=== PATIENT | female | born 2000 | race Caucasian/White ===

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

== ENCOUNTER 2020-03-13 16:15 | Emergency (ER) | payer OTHER | END 2020-03-13 17:00 | disposition home or self-care (01) | LOC: MADERS 16:15 | DX: S61.101A Unspecified open wound of right thumb with damage to nail, initial encounter (principal); F17.290 Nicotine dependence, other tobacco product, uncomplicated; W18.30XA Fall on same level, unspecified, initial encounter | CPT/HCPCS: 99283 ==

== ENCOUNTER 2021-02-11 08:45 | Emergency (ER) | payer OTHER ==
[2021-02-11] MEDS ORDERED: Acetaminophen 325 MG TAB ONE (09:13)
[2021-02-12 00:04] LABS: SARS-CoV-2 PCR by NAA DETECTED (NotDetected)
== END 2021-02-11 10:24 | disposition home or self-care (01) ==
LOC: MADERS 08:45
DX: O98.511 Other viral diseases complicating pregnancy, first trimester (principal); U07.1 COVID-19; O16.1 Unspecified maternal hypertension, first trimester; O99.511 Diseases of the respiratory system complicating pregnancy, first trimester; J45.909 Unspecified asthma, uncomplicated; O99.331 Smoking (tobacco) complicating pregnancy, first trimester; F17.290 Nicotine dependence, other tobacco product, uncomplicated; Z3A.01 Less than 8 weeks gestation of pregnancy
CPT/HCPCS: 87081; 87430; 87804; 99283; U0003; U0005

== ENCOUNTER 2022-04-11 14:46 | Emergency (ER) | payer OTHER ==
[2022-04-11] MEDS ORDERED: Ketorolac Tromethamine 60 MG/2 ML VIAL ONE (16:23)
[2022-04-11] MEDS ORDERED: Promethazine 25 MG TAB ONE (16:23)
== END 2022-04-11 16:29 | disposition home or self-care (01) ==
LOC: MADERS 14:46
DX: R51.9 Headache, unspecified (principal); J45.909 Unspecified asthma, uncomplicated; F17.290 Nicotine dependence, other tobacco product, uncomplicated; V40.0XXA Car driver injured in collision with pedestrian or animal in nontraffic accident, initial encounter; Z79.899 Other long term (current) drug therapy
CPT/HCPCS: 70450; 72125; 96372; J1885; Q0169

== ENCOUNTER 2023-02-04 11:16 | Emergency (ER) | payer OTHER, SELFPAY | END 2023-02-04 11:36 | disposition home or self-care (01) | LOC: MADERS 11:16 | DX: Z02.79 Encounter for issue of other medical certificate (principal) | CPT/HCPCS: 99281 ==

== ENCOUNTER 2023-12-08 21:18 | Emergency (ER) | payer MEDICAID, SELFPAY ==
[~2023-12-08 21:18] MED LIST changes: -Sodium Chloride 0.9% 1,000 ML BAG ONE
[2023-12-08 23:13] LABS: Anisocytosis SLIGHT = 6-15 cells (100X) (0-5/hpf); Hematocrit 31.8 % (36.0-47.0); Hemoglobin 9.9 g/dL (12.0-16.0); INR-International Normal Ratio 0.9; Lymphocytes 26 % (21-51); MDiff Complete? YES; Mean Corpuscular HGB CONC 31.1 g/dL (32.0-36.0); Mean Corpuscular Volume 77.2 fl (78.0-98.0); Mean Platelet Volume 7.5 fL (7.4-10.4); Monocytes 5 % (0-10); Neutrophil 69 % (42-75); Ovalocytes SLIGHT = 2-5 cells (100X) (0-1/hpf); Platelet Adequacy Comment Appears Adequate; Platelet Count 238 10x3/uL (130-400); Prothrombin Time 12.5 sec (12.0-14.7); RBC Distribution Width 15.7 % (11.5-14.5); Red Blood Cell (RBC) Count 4.12 mill/uL (4.20-5.40); White Blood Cell (WBC) Count 13.6 10x3/uL (4.8-10.8)
[2023-12-08 23:14] LABS: PTT 33.9 sec (22.9-36.1)
[2023-12-08] MEDS ORDERED: Acetaminophen 500 MG TAB ONE (23:23)
[2023-12-08] MEDS ORDERED: hydrALAZINE 20 MG/ML VIAL ONE (23:23)
[2023-12-08] MEDS ORDERED: Lactated Ringer's 1,000 ML ONE (23:23)
[2023-12-08 23:24] LABS: ALT (SGPT) 24 U/L (8-55); AST (SGOT) 17 U/L (5-34); Albumin 2.6 g/dL (3.5-5.0); Alkaline Phosphatase 144 U/L (40-110); Anion Gap 15 mmol/L (10-20); BUN (Urea Nitrogen) 6 mg/dL (7.0-18.7); Bilirubin, Total 0.5 mg/dL (0.2-1.2); Calc. Creatinine Clearance 0 mL/min (70-130); Calcium 8.7 mg/dL (7.8-10.44); Carbon Dioxide 22 mmol/L (22-29); Chloride 108 mmol/L (98-107); Estimated GFR 126; Globulin 3.1 g/dL (2.4-3.5); Glucose 83 mg/dL (70-105); Lipase 14 U/L (8-78); Potassium 3.8 mmol/L (3.5-5.1); Protein, Total 5.7 g/dL (6.0-8.3); Sodium 141 mmol/L (136-145); Troponin I Less than 0.010 ng/mL (< 0.028)
[2023-12-08 23:50] LABS: Bilirubin Negative (Negative); Blood, Urine Small (Negative); Clarity Clear (Clear); Glucose, Urine (Dipstick) Negative (Negative); Ketone, Urine Negative (Negative); Leukocyte Trace (Negative); Nitrite Negative (Negative); Protein, Urine (Dipstick) Negative (Neg-Trace); Specific Gravity, Urine 1.015 (1.005-1.030); Urobilinogen 0.2 mg/dL (Less than 2)
[2023-12-08 23:56] LABS: CAUTI Indications for Culture Pelvic or flank pain; RBC/HPF 21-50 HPF (0-3)
[2023-12-08 23:57] LABS: Urine Culture Reflex No No
[2023-12-09] MEDS ORDERED: Magnesium 2 GM/50 ML BAG (IN WATER) ONE ×2 (01:00→01:33)
== END 2023-12-09 02:30 | disposition home or self-care (01) ==
LOC: MADERS 21:18
DX: O14.95 Unspecified pre-eclampsia, complicating the puerperium (principal); O99.13 Other diseases of the blood and blood-forming organs and certain disorders involving the immune mechanism complicating the puerperium; O99.893 Other specified diseases and conditions complicating puerperium; O99.335 Smoking (tobacco) complicating the puerperium; D64.9 Anemia, unspecified; N83.201 Unspecified ovarian cyst, right side
CPT/HCPCS: 71275; 74177; 80053; 81001; 83690; 84484; 85025; 85610; 85730; 87400; 87426; 93005; 96365; 96375; 96376; J0360; J3475; J7120; Q9967